=== PATIENT | male | born 1980 | race Caucasian/White ===

== ENCOUNTER 2020-03-27 07:00 | Outpatient (RCR) | payer OTHER ==
[~2020-03-27 07:00] MED LIST: COLA100C5 PO; MIRA3350 PO
== END 2020-03-30 ==
LOC: M PT 07:00
PROVIDERS: ATTEND Orthopaedic Surgery Orthopaedic Surgery of the Spine
DX: M51.26 Other intervertebral disc displacement, lumbar region (principal)
CPT/HCPCS: 97110; 97140; 97162; G0283

== ENCOUNTER 2020-04-17 07:00 | Outpatient (RCR) | payer OTHER | END 2020-04-29 | LOC: M PT 07:00 | PROVIDERS: ATTEND Orthopaedic Surgery Orthopaedic Surgery of the Spine | DX: M51.26 Other intervertebral disc displacement, lumbar region (principal) ==

== ENCOUNTER 2020-05-01 07:50 | Outpatient (RCR) | payer OTHER | END 2020-05-30 | LOC: M PT 07:50 | PROVIDERS: ATTEND Orthopaedic Surgery Orthopaedic Surgery of the Spine | DX: Z47.89 Encounter for other orthopedic aftercare (principal); M51.26 Other intervertebral disc displacement, lumbar region ==

== ENCOUNTER → 2021-04-10 | Outpatient (CLI) | payer OTHER ==
[2021-04-10 11:36] LABS: ALT/SGPT 36 U/L (12-78); BILIRUBIN,TOTAL 2.6 MG/DL (0.2-1.0); BLOOD UREA NITROGEN 14 MG/DL (7-18); CALCIUM LEVEL 9.5 MG/DL (8.5-10.1); CARBON DIOXIDE LEVEL 31 MEQ/L (21-32); CHLORIDE LEVEL 104 MEQ/L (98-107); CHOLESTEROL LEVEL 250 MG/DL (<200); CHOLESTEROL RISK RATIO 3.472 (<5); CREATININE FOR GFR 1.27 MG/DL (0.70-1.30); FREE T4 2.24 NG/DL (0.76-1.46); GLOMERULAR FILTRATION RATE > 60.0 (>60); GLUCOSE, FASTING 97 MG/DL (70-100); HDL CHOLESTEROL 72 MG/DL (>40); LDL CHOLESTEROL 158 MG/DL (<100); NON-HDL-C 178 MG/DL; POTASSIUM SERUM 4.4 MEQ/L (3.5-5.1); SODIUM LEVEL 139 MEQ/L (136-145); THYROID STIMULATING HORMONE 0.917 uIU/ML (0.358-3.740); TOTAL PROTEIN 7.3 GM/DL (6.4-8.2); TRIGLYCERIDES LEVEL 99 MG/DL (<150)
[2021-04-11 23:07] LABS: PSA TOTAL 0.8 ng/mL (0.0-4.0)
== END ==
LOC: M PLALAB 08:22
PROVIDERS: ATTEND Family Medicine
DX: Z00.00 Encounter for general adult medical examination without abnormal findings (principal); Z13.1 Encounter for screening for diabetes mellitus; Z13.220 Encounter for screening for lipoid disorders; Z13.29 Encounter for screening for other suspected endocrine disorder; Z80.42 Family history of malignant neoplasm of prostate

== ENCOUNTER → 2021-04-29 | Outpatient (CLI) | payer OTHER | LOC: M RAD 07:03 | PROVIDERS: ATTEND Physician Assistant | DX: R94.5 Abnormal results of liver function studies (principal) ==